=== PATIENT | male | born 1985 | race Caucasian/White ===

== ENCOUNTER 2019-07-23 09:33 | Emergency (ER) | payer BC ==
[~2019-07-23] VITALS: Ht 185.4 cm; Wt 86.4 kg
[2019-07-23 09:40] VITALS: TEMP 97.4
[2019-07-23] MEDS ORDERED: NORCO 325 MG-51 TAB PO (10:08)
[2019-07-23 10:22] VITALS: BP 125/74; PULSE 65
== END 2019-07-23 10:26 | disposition home or self-care (01) ==
LOC: COL.ER 09:33
DX: M54.5 Low back pain (principal); G89.29 Other chronic pain; F17.210 Nicotine dependence, cigarettes, uncomplicated; Z87.39 Personal history of other diseases of the musculoskeletal system and connective tissue
CPT/HCPCS: J1170; J1885